=== PATIENT | male | born 1965 | race Caucasian/White ===

== ENCOUNTER 2017-11-07 17:41 | Emergency (ER) | payer SELFPAY ==
[2017-11-07 17:44] VITALS: TEMP 36.8
[2017-11-07] MEDS ORDERED: SODIUM CHLORIDE 0.9% 1000ML 1,000 ML IV STA ×2 (18:35→19:17)
--- NOTE | 2017-11-07 18:36 | EMERGENCY ROOM VISIT NOTE ---
History First contact with patient: 18:01 Chief Complaint: ABDOMINAL PAIN Stated Complaint: UPSET STOMACH Nursing Triage Summary: PT here visiting his friends, began having N/V today. PT complaining of weakness. Denies abd pain. Denies diarrhea History of Present Illness The patient is a 52 year old male who presents to the Emergency Room with complaints of abdominal pain, fatigue and chills x 1 day. Yesterday the patient was completely normal. For dinner yesterday the patient had chicken, gravy and bread. - nothing out of the ordinary. Patient is originally from [place] and has been in [place] for one month. Describes his health in general as good. Doesn't take any medications. Patient did have non bloody vomit 3 hours prior to arrival. Pt denies diarrhea, chest pain, SOB, denies any current abdominal pain or chronic abdominal pain after large fatty meals. Patient states he is tired right now and just wants to sleep. Pt is accompanied by his friend that assists with the history. First language is MAORI. PMHx: Back surgery in 2010. Denies ever having malaria in the past. Meds: Takes no meds. SHx: Staying with a friend in [place]. Review of Systems See HPI for pertinent positives and negatives. A total of ten systems were reviewed and were otherwise negative. Constitutional: + chills, + weakness, + fatigue, No fever Respiratory: No cough, No sputum, No shortness of breath Cardiovascular: No chest pain Abdomen: + vomiting, No pain, No nausea, No diarrhea, No constipation Musculoskeletal: No joint pain Genitourinary - Male: No hematuria, No dysuria, No urinary frequency Neurologic: No memory loss Past Medical/Surgical History Surgical Problems: (1) History of back surgery Social History Smoking Status: Never Smoker Current/Historical Medications No Active Prescriptions or Reported Meds Physical Exam Vital Signs Date Time Temp Pulse Resp B/P (MAP) Pulse Ox O2 Delivery O2 Flow Rate FiO2 11/07/17 19:36 88 20 130/79 99 Room Air 11/07/17 17:44 36.8 95 20 120/81 96 Room Air Physical Exam Gen: No acute distress. HEENT: Head - normocephalic and atraumatic. Pupils are equal, round, and reactive to light. Extraocular eye muscles are intact and sclera are anicteric. Ears - bilaterally patent canals with noninjected tympanic membranes and no evidence of hemotympanum. Nose - moist nasal mucosa without discharge. Mouth - moist buccal mucosa. Oropharynx is nonerythematous and there is no tonsillar exudate or edema noted. Neck: Supple; no JVD, nuchal rigidity, cervical lymphadenopathy, or auscultated bruits. Heart: Regular rate and rhythm. There is a normal S1 and S2 with no murmurs, clicks, or gallops appreciated. Lungs: Clear to auscultation bilaterally with no wheezes, rales, or rhonchi. Abdomen: Soft, TTP in the RUQ, nondistended, with good bowel sounds. There are no palpable pulsatile masses or hepatosplenomegaly. There is no guarding, rigidity, or rebound noted. Extremities: No evidence of cyanosis, clubbing, or edema. There are easily palpable peripheral pulses. Neuro:The patient is awake and alert, oriented to day, time, and place. Muscle strength is 5/5 in all 4 extremities. 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 There are no cerebellar signs. SKIN: Scar on the distal right lower extremity, well healed. Medical Decision & Procedures ER Provider Diagnostic Interpretation: ABDOMEN LIMITED (US) HISTORY: Pain +'ve bartlett's sign, RUQ pain. COMPARISON: None. FINDINGS: Pancreas: Poorly seen due to overlying bowel content. Liver: Fatty infiltration Gallbladder: No evidence for shadowing gallstones CBD: 5 mm Right kidney: No evidence for hydronephrosis. IMPRESSION: Fatty infiltration of the liver. Otherwise negative study. CHEST ONE VIEW PORTABLE CLINICAL HISTORY: weakness and lethargy dyspnea COMPARISON STUDY: No previous studies for comparison. FINDINGS: Mild bibasilar parenchymal infiltrates. No significant cardiac enlargement. Upper lungs are clear. The diaphragms are smooth. IMPRESSION: Mild bibasilar parenchymal infiltrates. Laboratory Results 11/07/17 18:30 Red Blood Count 5.66, Mean Corpuscular Volume 86.9, Mean Corpuscular Hemoglobin 30.9, Mean Corpuscular Hemoglobin Concent 35.6, Mean Platelet Volume 10.1, Neutrophils (%) (Auto) 87.5, Lymphocytes (%) (Auto) 7.6, Monocytes (%) (Auto) 4.4, Eosinophils (%) (Auto) 0.2, Basophils (%) (Auto) 0.1, Neutrophils # (Auto) 10.98, Lymphocytes # (Auto) 0.95, Monocytes # (Auto) 0.55, Eosinophils # (Auto) 0.02, Basophils # (Auto) 0.01 11/07/17 18:30 Test 11/07/17 18:30 11/07/17 18:38 White Blood Count 12.54 K/uL (4.8-10.8) Red Blood Count 5.66 M/uL (4.7-6.1) Hemoglobin 17.5 g/dL (14.0-18.0) Hematocrit 49.2 % (42-52) Mean Corpuscular Volume 86.9 fL (80-100) Mean Corpuscular Hemoglobin 30.9 pg (25-34) Mean Corpuscular Hemoglobin Concent 35.6 g/dl (32-36) Platelet Count 236 K/uL (130-400) Mean Platelet Volume 10.1 fL (7.4-10.4) Neutrophils (%) (Auto) 87.5 % Lymphocytes (%) (Auto) 7.6 % Monocytes (%) (Auto) 4.4 % Eosinophils (%) (Auto) 0.2 % Basophils (%) (Auto) 0.1 % Neutrophils # (Auto) 10.98 K/uL (1.4-6.5) Lymphocytes # (Auto) 0.95 K/uL (1.2-3.4) Monocytes # (Auto) 0.55 K/uL (0.11-0.59) Eosinophils # (Auto) 0.02 K/uL (0-0.5) Basophils # (Auto) 0.01 K/uL (0-0.2) RDW Standard Deviation 41.5 fL (36.4-46.3) RDW Coefficient of Variation 13.1 % (11.5-14.5) Immature Granulocyte % (Auto) 0.2 % Immature Granulocyte # (Auto) 0.03 K/uL (0.00-0.02) Anion Gap 8.0 mmol/L (3-11) Estimated GFR () 95.2 Estimated GFR (Non- 82.2 BUN/Creatinine Ratio 19.4 (10-20) Calcium Level 9.4 mg/dl (8.5-10.1) Total Bilirubin 0.5 mg/dl (0.2-1) Aspartate Amino Transf (AST/SGOT) 22 U/L (15-37) Alanine Aminotransferase (ALT/SGPT) 30 U/L (12-78) Alkaline Phosphatase 84 U/L (45-117) Total Protein 8.5 gm/dl (6.4-8.2) Albumin 4.1 gm/dl (3.4-5.0) Globulin 4.4 gm/dl (2.5-4.0) Albumin/Globulin Ratio 0.9 (0.9-2) Lipase 131 U/L (73-393) Chemistry Specimen Hemolysis Bedside Troponin I < 0.030 ng/ml (0-0.045) Medications Administered Medications (Trade) Dose Ordered Sig/Flavio Route Start Time Stop Time Status Last Admin Dose Admin Sodium Chloride 1,000 ml @ 999 mls/hr Q1H1M STAT IV 11/07/17 18:35 11/07/17 19:35 DC 11/07/17 19:00 999 MLS/HR Sodium Chloride 1,000 ml @ 999 mls/hr Q1H1M STAT IV 11/07/17 19:17 11/07/17 20:17 DC 11/07/17 19:41 999 MLS/HR Famotidine (Pepcid Tab) 20 mg NOW ONCE PO 11/07/17 19:30 11/07/17 19:31 DC 11/07/17 19:36 20 MG Ondansetron HCl (Zofran Odt) 4 mg NOW STAT PO 11/07/17 19:17 11/07/17 19:30 DC 11/07/17 19:35 4 MG Medical Decision The patient's care and disposition was discussed with Dr. Rodríguez, Attending ED Physician. This is a 52M with acute fatigue and chills. Differential diagnosis include viral syndrome, otitis, pharyngitis, pneumonia, influenza, meningitis, urinary tract infection, sepsis, bacteremia, as well as others were entertained. Triage Nursing notes were reviewed. ED Course included an extensive history and physical exam, labs, EKG, Troponin and US RUQ. CBC showed WBC predominance. EKG was NSR, no ST elevations. Trop was negative. RUQ US showed fatty liver. X-ray showed mild bibasilar parenchymal infiltrates. 6:15pm - Seen and examined the patient. 6:45pm - Discussed patient with Dr. Rodríguez. New labs and imaging ordered. 7:15pm - Examined patient with Dr. Rodríguez, Bartlett's sign had resolved. 2L of NSS was ordered. Pt was given 4mg ODT Zofran and Pepsid. 8:15pm - Pt was reexamined and doing much better. Pt was advised to drink fluids and stay well hydrated. Follow up in the [facility] on Tuesday will be arranged. Rapid flu pending on DC. Pt will be discharge with 6 tabs of Zofran ODT for nausea. The pt was informed about the findings as listed above. All questions were answered. Return instructions were outlined and the patient was discharged in good condition. The patient was referred to PCP for recheck of the current condition. Impression Primary Impression: Acute gastroenteritis Departure Information Dispostion Home / Self-Care Condition GOOD Prescriptions No Active Prescriptions or Reported Meds Referrals No Doctor, Assigned (PCP) Patient Instructions ED Dehydration, My [facility] Resident Involvement: Resident Care Provided Care Provided: Adult ED
[2017-11-07 18:42] LABS: BASO % 0.1 %; BASO ABS # 0.01 K/uL (0-0.2); EOS % 0.2 %; EOS ABS # 0.02 K/uL (0-0.5); HEMATOCRIT 49.2 % (42-52); HEMOGLOBIN 17.5 g/dL (14.0-18.0); IG# 0.03 K/uL (0.00-0.02); LYMPH % 7.6 %; LYMPH ABS # 0.95 K/uL (1.2-3.4); MEAN CELL VOLUME 86.9 fL (80-100); MEAN CORPUSCULAR HEMOGLOBIN 30.9 pg (25-34); MEAN CORPUSCULAR HGB CONC 35.6 g/dl (32-36); MEAN PLATELET VOLUME 10.1 fL (7.4-10.4); MONO % 4.4 %; MONO ABS # 0.55 K/uL (0.11-0.59); NEUT % 87.5 %; NEUT ABS # 10.98 K/uL (1.4-6.5); PLATELET COUNT 236 K/uL (130-400); RED CELL DISTRIBUTION WIDTH CV 13.1 % (11.5-14.5); RED CELL DISTRIBUTION WIDTH SD 41.5 fL (36.4-46.3); WHITE BLOOD COUNT 12.54 K/uL (4.8-10.8)
[2017-11-07 19:05] LABS: ALBUMIN 4.1 gm/dl (3.4-5.0); ALKALINE PHOSPHATASE 84 U/L (45-117); ALT/SGPT 30 U/L (12-78); AST/SGOT 22 U/L (15-37); BLOOD UREA NITROGEN 20 mg/dl (7-18); CALCIUM 9.4 mg/dl (8.5-10.1); CARBON DIOXIDE 27 mmol/L (21-32); CREATININE 1.04 mg/dl (0.60-1.40); GLUCOSE 128 mg/dl (70-99); LIPASE 131 U/L (73-393); POTASSIUM 4.6 mmol/L (3.5-5.1); SODIUM 137 mmol/L (136-145); TOTAL PROTEIN 8.5 gm/dl (6.4-8.2)
[2017-11-07] MEDS ORDERED: ONDANSETRON 4MG OD TAB PO STA (19:17)
--- NOTE | 2017-11-07 19:18 | EMERGENCY ROOM VISIT NOTE ---
History Report prepared by Bladimir: Derick Nassar Under the Supervision of: Dr. Mio Rodríguez M.D. First contact with patient: 18:01 Chief Complaint: ABDOMINAL PAIN Stated Complaint: UPSET STOMACH Nursing Triage Summary: PT here visiting his friends, began having N/V today. PT complaining of weakness. Denies abd pain. Denies diarrhea History of Present Illness The patient is a 52 year old male who presents to the Emergency Room with complaints of intermittent abdominal pain beginning 15 hours ago. The patient's friend states the patient ate chicken and bread last evening. He reports the patient was not feeling well after he ate. The friend notes they both ate the same food, and he is not experiencing any symptoms. He states the patient developed chills, nausea, and fatigue earlier today. The friend reports the patient was normal yesterday. He notes the patient is in good health normally, and he does not take medication. The friend states the patient cannot eat anything without his symptoms increasing. He reports the patient did vomit several times this afternoon. The friend notes the patient has been here for a month from [place]. He denies CP, SOB, NOLAN, dizziness, diarrhea, eating new food , a history of gallbladder problems, a history of hepatitis, and a history of malaria. The friend notes the patient's brother has a history of hepatitis, and they did not drink the same water or live together. Source of History: friend Onset: 15 hours ago Position: abdomen Timing: intermittent Modifying Factors (Worsening): eating Associated Symptoms: + chills, + nausea, + fatigue, No diarrhea Note: Denies: eating new foods Review of Systems See HPI for pertinent positives and negatives. A total of ten systems were reviewed and were otherwise negative. Past Medical & Surgical Surgical Problems: (1) History of back surgery Family History Patient reports no known family medical history. Social History Smoking Status: Never Smoker Marital Status: Housing Status: lives with friends Occupation Status: unemployed Current/Historical Medications Scheduled PRN Ondansetron Hcl (Zofran), 4 MG PO TID PRN for Nausea Allergies Coded Allergies: No Known Allergies (Unverified , 11/07/17) Physical Exam Vital Signs Date Time Temp Pulse Resp B/P (MAP) Pulse Ox O2 Delivery O2 Flow Rate FiO2 11/07/17 20:58 90 20 111/71 97 5/7/18 19:36 88 20 130/79 99 Room Air 11/07/17 17:44 36.8 95 20 120/81 96 Room Air Physical Exam GENERAL: Awake, alert, fatigued-appearing, in no distress HENT: Normocephalic, atraumatic. Oropharynx has dry mucus membranes otherwise unremarkable. EYES: Normal conjunctiva. Sclera non-icteric. NECK: Supple. No nuchal rigidity. FROM. No JVD. RESPIRATORY: Clear to auscultation. CARDIAC: Regular rate, normal rhythm. Extremities warm and well perfused. Pulses equal. ABDOMEN: Soft, non-distended. No tenderness to palpation. No rebound or guarding. No masses. RECTAL: Deferred. MUSCULOSKELETAL: Chest examination reveals no tenderness. The back is symmetrical on inspection without obvious abnormality. There is no CVA tenderness to palpation. No joint edema. LOWER EXTREMITIES: Calves are equal size bilaterally and non-tender. No edema. No discoloration. NEURO: Normal sensorium. No sensory or motor deficits noted. SKIN: No rash or jaundice noted. Medical Decision & Procedures ER Provider Diagnostic Interpretation: Radiology results as stated below per my review and radiologist interpretation: CHEST ONE VIEW PORTABLE CLINICAL HISTORY: weakness and lethargy dyspnea COMPARISON STUDY: No previous studies for comparison. FINDINGS: Mild bibasilar parenchymal infiltrates. No significant cardiac enlargement. Upper lungs are clear. The diaphragms are smooth. IMPRESSION: Mild bibasilar parenchymal infiltrates. The above report was generated using voice recognition software. It may contain grammatical, syntax or spelling errors. Electronically signed by: Salomon Xavier M.D. 11/07/2017 7:48 PM Dictated Date/Time: 11/07/2017 7:48 PM ABDOMEN LIMITED (US) HISTORY: Pain +'ve barrera's sign, RUQ pain. COMPARISON: None. FINDINGS: Pancreas: Poorly seen due to overlying bowel content. Liver: Fatty infiltration Gallbladder: No evidence for shadowing gallstones CBD: 5 mm Right kidney: No evidence for hydronephrosis. IMPRESSION: Fatty infiltration of the liver. Otherwise negative study. The above report was generated using voice recognition software. It may contain grammatical, syntax or spelling errors. Electronically signed by: Salomon Xavier M.D. 11/07/2017 8:11 PM Dictated Date/Time: 11/07/2017 8:10 PM Laboratory Results 11/07/17 18:30 Red Blood Count 5.66, Mean Corpuscular Volume 86.9, Mean Corpuscular Hemoglobin 30.9, Mean Corpuscular Hemoglobin Concent 35.6, Mean Platelet Volume 10.1, Neutrophils (%) (Auto) 87.5, Lymphocytes (%) (Auto) 7.6, Monocytes (%) (Auto) 4.4, Eosinophils (%) (Auto) 0.2, Basophils (%) (Auto) 0.1, Neutrophils # (Auto) 10.98, Lymphocytes # (Auto) 0.95, Monocytes # (Auto) 0.55, Eosinophils # (Auto) 0.02, Basophils # (Auto) 0.01 11/07/17 18:30 Test 11/07/17 18:30 11/07/17 18:38 11/07/17 20:45 White Blood Count 12.54 K/uL (4.8-10.8) Red Blood Count 5.66 M/uL (4.7-6.1) Hemoglobin 17.5 g/dL (14.0-18.0) Hematocrit 49.2 % (42-52) Mean Corpuscular Volume 86.9 fL (80-100) Mean Corpuscular Hemoglobin 30.9 pg (25-34) Mean Corpuscular Hemoglobin Concent 35.6 g/dl (32-36) Platelet Count 236 K/uL (130-400) Mean Platelet Volume 10.1 fL (7.4-10.4) Neutrophils (%) (Auto) 87.5 % Lymphocytes (%) (Auto) 7.6 % Monocytes (%) (Auto) 4.4 % Eosinophils (%) (Auto) 0.2 % Basophils (%) (Auto) 0.1 % Neutrophils # (Auto) 10.98 K/uL (1.4-6.5) Lymphocytes # (Auto) 0.95 K/uL (1.2-3.4) Monocytes # (Auto) 0.55 K/uL (0.11-0.59) Eosinophils # (Auto) 0.02 K/uL (0-0.5) Basophils # (Auto) 0.01 K/uL (0-0.2) RDW Standard Deviation 41.5 fL (36.4-46.3) RDW Coefficient of Variation 13.1 % (11.5-14.5) Immature Granulocyte % (Auto) 0.2 % Immature Granulocyte # (Auto) 0.03 K/uL (0.00-0.02) Anion Gap 8.0 mmol/L (3-11) Estimated GFR () 95.2 Estimated GFR (Non- 82.2 BUN/Creatinine Ratio 19.4 (10-20) Calcium Level 9.4 mg/dl (8.5-10.1) Total Bilirubin 0.5 mg/dl (0.2-1) Aspartate Amino Transf (AST/SGOT) 22 U/L (15-37) Alanine Aminotransferase (ALT/SGPT) 30 U/L (12-78) Alkaline Phosphatase 84 U/L (45-117) Total Protein 8.5 gm/dl (6.4-8.2) Albumin 4.1 gm/dl (3.4-5.0) Globulin 4.4 gm/dl (2.5-4.0) Albumin/Globulin Ratio 0.9 (0.9-2) Lipase 131 U/L (73-393) Chemistry Specimen Hemolysis Bedside Troponin I < 0.030 ng/ml (0-0.045) Influenza Type A (RT-PCR) Neg for Influ A (NEG) Influenza Type B (RT-PCR) Neg for Influ B (NEG) Laboratory results reviewed by me Medications Administered Medications (Trade) Dose Ordered Sig/Flavio Route Start Time Stop Time Status Last Admin Dose Admin Sodium Chloride 1,000 ml @ 999 mls/hr Q1H1M STAT IV 11/07/17 18:35 11/07/17 19:35 DC 11/07/17 19:00 999 MLS/HR Sodium Chloride 1,000 ml @ 999 mls/hr Q1H1M STAT IV 11/07/17 19:17 11/07/17 20:17 DC 11/07/17 19:41 999 MLS/HR Famotidine (Pepcid Tab) 20 mg NOW ONCE PO 11/07/17 19:30 11/07/17 19:31 DC 11/07/17 19:36 20 MG Ondansetron HCl (Zofran Odt) 4 mg NOW STAT PO 11/07/17 19:17 11/07/17 19:30 DC 11/07/17 19:35 4 MG Ondansetron HCl (ZOFRAN ODT 4MG Home Pack) 1 homepack UD ONCE PO 11/07/17 21:00 11/07/17 21:01 DC 11/07/17 20:58 1 HOMEPACK ECG Per My Interpretation Indication: abdominal pain Rate (beats per minute): 81 Rhythm: normal sinus Findings: no acute ischemic change, other (Normal axis.) ED Course 1830: The patient was evaluated in room C10 by the resident under my supervision. A complete history and physical exam was performed. 1923: The patient was evaluated in room C10 by me. A complete history and physical exam was performed. 2044: The resident reevaluated the patient. Discussed results and discharge instructions: he verbalized understanding and agreement. The patient is ready for discharge. Medical Decision I reviewed the patient's past medical history, medications, and the nursing notes as described above. Differential diagnosis: Etiologies such as gastroenteritis, food borne illness, infections, appendicitis , diverticulitis, inflammatory bowel disease, obstruction, GI bleed, biliary pathology, as well as others were entertained. The patient is a 52 y/o gentleman who presents to the emergency department with n/v since last night per HPI. Denies h/o malaria, hepatitis, TB, or medical hx otherwise. On arrival the patient fatigued and uncomfortable but is in NAD, AFVSS. WBC 12, nonspecific. EKG unremarkable. Trop negative in the setting of > 6 hours of sx. Labs otherwise unremarkable. Flu negative. CXR with ? infiltrates however patient denies any respiratory sx. RUQ US unremarkable. Patient feeling improved after IVF, zofran, pepcid. Sx most likely viral gastritis/gastroenteritis. Plan for outpatient f/u. Findings and plan for follow -up reviewed with patient. Patient agreeable and d/c'd per discharge instructions. I discussed the case with the resident physician, examined the patient, and agree with the findings and plan as documented in the residents note unless otherwise clarified here by me. Medication Reconcilliation Current Medication List: was personally reviewed by me Blood Pressure Screening Patient's blood pressure: Normal blood pressure Blood pressure disposition: Did not require urgent referral Impression Primary Impression: Acute gastroenteritis Scribe Attestation The scribe's documentation has been prepared under my direction and personally reviewed by me in its entirety. I confirm that the note above accurately reflects all work, treatment, procedures, and medical decision making performed by me. Departure Information Dispostion Home / Self-Care Prescriptions Ondansetron Hcl (ZOFRAN) 4 Mg Tab 4 MG PO TID Y for Nausea for 3 Days, #6 TAB Prov: Salomon Fajardo M.D. 11/07/17 Referrals No Doctor, Assigned (PCP) Forms Call Back Authorization, HOME CARE DOCUMENTATION FORM, IMPORTANT VISIT INFORMATION Patient Instructions ED Dehydration, My [facility]
[2017-11-07] MEDS ORDERED: FAMOTIDINE 20 MG TAB PO ONE (19:30)
--- NOTE | 2017-11-07 19:50 | DIAGNOSTIC IMAGING REPORT ---
CHEST ONE VIEW PORTABLE CLINICAL HISTORY: weakness and lethargy dyspnea COMPARISON STUDY: No previous studies for comparison. FINDINGS: Mild bibasilar parenchymal infiltrates. No significant cardiac enlargement. Upper lungs are clear. The diaphragms are smooth. IMPRESSION: Mild bibasilar parenchymal infiltrates. The above report was generated using voice recognition software. It may contain grammatical, syntax or spelling errors. Electronically signed by: Salomon Xavier M.D. 11/07/2017 7:48 PM Dictated Date/Time: 11/07/2017 7:48 PM
--- NOTE | 2017-11-07 20:12 | DIAGNOSTIC IMAGING REPORT ---
ABDOMEN LIMITED (US) HISTORY: Pain +'ve barrera's sign, RUQ pain. COMPARISON: None. FINDINGS: Pancreas: Poorly seen due to overlying bowel content. Liver: Fatty infiltration Gallbladder: No evidence for shadowing gallstones CBD: 5 mm Right kidney: No evidence for hydronephrosis. IMPRESSION: Fatty infiltration of the liver. Otherwise negative study. The above report was generated using voice recognition software. It may contain grammatical, syntax or spelling errors. Electronically signed by: Salomon Xavier M.D. 11/07/2017 8:11 PM Dictated Date/Time: 11/07/2017 8:10 PM
[2017-11-07] MEDS ORDERED: ONDA4TAB46 PO (20:43)
[2017-11-07] MEDS ORDERED: ONDANSETRON HOME PACK 4MG OD TAB ONE (20:54)
[2017-11-07 20:58] VITALS: BP 111/71; PULSE 90; O2SAT 97
[2017-11-07] MEDS ORDERED: ONDANSETRON HOME PACK 4MG OD TAB PO ONE (21:00)
[2017-11-07 21:30] LABS: INFLUENZA A PCR Neg for Influ A (NEG); INFLUENZA B PCR Neg for Influ B (NEG)
== END 2017-11-07 20:59 | disposition home or self-care (01) ==
LOC: C.EDB 17:43 → C.EDC 20:59
DX: K52.9 Noninfective gastroenteritis and colitis, unspecified (principal); R10.9 Unspecified abdominal pain